=== PATIENT | male | born 1950 | race Caucasian/White ===

== ENCOUNTER → 2017-11-11 | Outpatient (CLI) | payer OTHER ==
[~2017-11-11] VITALS: Ht 185.4 cm; Wt 135.6 kg
[~2017-11-11] MED LIST: REGADENOSON 0.4 MG/5 ML PF SYG IVP SCH
== END | disposition home or self-care (01) ==
LOC: EDUNIT# 08:10 → SHCH 09:01
PROVIDERS: ATTEND Internal Medicine Cardiovascular Disease
DX: R07.9 Chest pain, unspecified (principal)
CPT/HCPCS: 78452; 93017; 96374; A9500 ×2; J2785

== ENCOUNTER 2018-04-24 05:56 | Day surgery (SDC) | payer OTHER ==
[2018-04-22 14:15] VITALS: BP 129/76
[2018-04-22 14:39] LABS: BASOPHILS % (AUTO) 0.3 % (0.0-5.0); EOSINOPHILS % (AUTO) 12.5 % (0.0-8.0); HEMATOCRIT 46.5 % (42-54); LYMPHOCYTES % (AUTO) 18.3 % (21.0-51.0); MEAN CORPUSCULAR HEMOGLOBIN 29.4 pg (27.0-33.0); MEAN CORPUSCULAR HGB CONC 32.2 g/dL (32.0-36.0); MEAN CORPUSCULAR VOLUME 91.5 fL (79-99); NEUTROPHILS % (AUTO) 61.9 % (40.0-77.0); PLATELET COUNT (AUTO) 177 K/uL (130-400); RED BLOOD CELL COUNT(AUTO) 5.08 MIL/uL (4.50-6.20); WHITE BLOOD COUNT (AUTO) 9.3 K/uL (4.8-10.8)
[2018-04-22 14:45] LABS: CREATININE 1.5 mg/dL (0.5-1.5); POTASSIUM 4.3 mmol/L (3.5-5.1)
[2018-04-22 14:48] LABS: INR 0.95 (0.85-1.15); PARTIAL THROMBOPLASTIN TIME 29.2 SEC (26.3-35.5)
[2018-04-22 14:49] LABS: APPEARANCE,URINE Clear (CLEAR); BILIRUBIN,URINE Negative (NEGATIVE); COLOR,URINE Dark Yellow (YELLOW); GLUCOSE, URINE (UA) Negative (NEGATIVE); KETONES,URINE Trace mg/dL (NEGATIVE); LEUKOCYTE ESTERASE ,URINE Negative (NEGATIVE); NITRATE,URINE Negative (NEGATIVE); OCCULT BLOOD,URINE Negative (NEGATIVE); PROTEIN,URINE Negative (NEGATIVE)
[~2018-04-24] VITALS: Ht 182.9 cm; Wt 141.8 kg
[2018-04-24] VITALS (18 sets, daily range): BP systolic 107–164; BP diastolic 47–89
[~2018-04-24 05:56] MED LIST changes: +ASPI-555 PO; +FOLI1TAB61 PO; +HYDR-4154 PO; +LOSA100T20 PO; +METO-408 PO; -REGADENOSON 0.4 MG/5 ML PF SYG IVP SCH; +SODIUM CHLORIDE 0.9% 500ML 500 ML IV SCH
[2018-04-24] MEDS ORDERED: SODIUM CHLORIDE 0.9% 1000ML 1,000 ML IV SCH (06:00)
[2018-04-24 06:39] LABS: CREATININE 1.4 mg/dL (0.5-1.5); POTASSIUM 4.7 mmol/L (3.5-5.1)
[2018-04-24] MEDS ORDERED: PRED20TA3 PO (08:11)
[2018-04-24] MEDS ORDERED: DIPH25 PO (08:11)
[2018-04-24] MEDS ORDERED: METHYLPREDNISOLONE SOD SUCC 125MG/2ML VIAL IVP SCH (08:30)
[2018-04-24] MEDS ORDERED: LIDOCAINE HCL-MPF 2% 5ML VIAL ONE (11:06)
[2018-04-24] MEDS ORDERED: IOHEXOL 350 MG/ML 100ML INFUS..BTL IV ONE (11:07)
[2018-04-24] MEDS ORDERED: IOHEXOL-350 50ML VIAL IV ONE ×2 (11:07→11:31)
[2018-04-24] MEDS ORDERED: METO-408 PO (11:55)
== END 2018-04-24 21:30 | disposition home or self-care (01) ==
LOC: DAH 05:56
PROVIDERS: ATTEND Internal Medicine Cardiovascular Disease
DX: I20.9 Angina pectoris, unspecified (principal); I11.9 Hypertensive heart disease without heart failure; F15.90 Other stimulant use, unspecified, uncomplicated; Z88.8 Allergy status to other drugs, medicaments and biological substances; E66.9 Obesity, unspecified; Z68.41 Body mass index [BMI] 40.0-44.9, adult; Z79.82 Long term (current) use of aspirin; Z79.899 Other long term (current) drug therapy; Z87.891 Personal history of nicotine dependence
CPT/HCPCS: 36415 ×2; 71045; 80048 ×2; 81003; 85025; 85610; 85730; 93005; 93458; 96365; 96366; 96374; A4606; C1894; J1644 ×2; J2930; J3490; J7030; Q9965; Q9967 ×2; 96360; 96361

== ENCOUNTER 2020-04-04 06:56 | Day surgery (SDC) | payer OTHER ==
[2020-03-30 12:19] LABS: BASOPHILS % (AUTO) 0.4 % (0.0-5.0); EOSINOPHILS % (AUTO) 5.8 % (0.0-8.0); HEMATOCRIT 52.4 % (42-54); LYMPHOCYTES % (AUTO) 15.9 % (21.0-51.0); MEAN CORPUSCULAR HEMOGLOBIN 29.1 pg (27.0-33.0); MEAN CORPUSCULAR HGB CONC 31.9 g/dL (32.0-36.0); MEAN CORPUSCULAR VOLUME 91.3 fL (79-99); NEUTROPHILS % (AUTO) 69.5 % (40.0-77.0); PLATELET COUNT (AUTO) 142 K/uL (130-400); RED BLOOD CELL COUNT(AUTO) 5.74 MIL/uL (4.50-6.20); RED CELL DISTRIBUTION WIDTH 15.2 % (11.0-15.5); WHITE BLOOD COUNT (AUTO) 8.3 K/uL (4.8-10.8)
[2020-03-30 12:28] LABS: POTASSIUM 4.2 mmol/L (3.5-5.1)
--- NOTE | 2020-04-01 14:44 | NUR ---
CLARIFICATION RECEIVED CALL BACK FROM DR REMY OFFICE THAT DR JOHNSON WILL PROCEED WITH SURGERY SCHEDULED WITHOUT COVID SWAB PER JUN HIS NURSE.
--- NOTE | 2020-04-01 16:58 | NUR ---
RE: ABNORMAL EKG INFORMED DR LANIER REGARDING ABNORMAL EKG. PER DR LANIER, PLEASE CALL HIM WHEN PATIENT ARRIVES TO OR HOLDING ON DAY OF SURGERY SO HE CAN GIVE ORDERS.
[2020-04-04] VITALS (12 sets, daily range): BP systolic 148–188; BP diastolic 68–138
[~2020-04-04] VITALS: Ht 180.3 cm; Wt 129.9 kg
[~2020-04-04 06:56] MED LIST changes: +ASPI-1443 PO; -ASPI-555 PO; +BENZ200C53 PO; +CEFAZOLIN SODIUM 1 GM VIAL IVP SCH; -FOLI1TAB61 PO; +FURO40TA5 PO; -HYDR-4154 PO; -LOSA100T20 PO; -METO-408 PO; +MONT10TA26 PO; +NINT150C PO; +SODIUM CHLORIDE 0.9% 1000ML 1,000 ML IV SCH; -SODIUM CHLORIDE 0.9% 500ML 500 ML IV SCH
[2020-04-04] MEDS ORDERED: LACTATED RINGERS 1000ML 1,000 ML IV ONE (07:45)
--- NOTE | 2020-04-04 07:45 | NUR ---
PREOP PT ARRIVED VIA W/C WITH O2 AT 2L AND SOB. PT WAS SEEN BY DR LANIER FOR EVAL. DR LANIER ALSO INFORMED OF ELEVATED B/P. NO NEW ORDERS AT THIS TIME. PT GIVEN CALL LIGHT
[2020-04-04] MEDS ORDERED: CEFAZOLIN SODIUM 1 GM VIAL ONE (08:23)
[2020-04-04] MEDS ORDERED: LIDOCAINE HCL 1% 20 ML VIAL ONE (08:30)
[2020-04-04] MEDS ORDERED: BUPIVACAINE/PF 0.5% 30ML VIAL ONE (08:30)
[2020-04-04] MEDS ORDERED: KETAMINE 50MG/ML SYRINGE 50 MG/ML DISP.SYRIN IV ONE (09:59)
--- NOTE | 2020-04-04 10:45 | NUR ---
Pt received Pt was received via stretcher from PACU and OR staff. Pt awake and alert. Talkative. Denies any pain. Pt with high BP. As per PACU nurse this is a norm for pt and that MD is aware. Dressing to left chest area with gauze and opsite. Dry and intact. Pt denies any pain or discomfort. Pt states BP is always as now.
--- NOTE | 2020-04-04 11:45 | NUR ---
D/C Pt was taken out of facility via w/c with personal o2 on at 3L/min via NC
--- NOTE | 2020-04-04 11:45 | NUR ---
D/C Pt was given discharge instructions and was given instructions over the phone. Prescription for Motrin 800mg given. Reviewed with pt and . All discharge instructions were discussed with also a follow up appointment. Both verbalized understanding. Pt was taken out of facility via w/c with awaiting in no distress. Pt very appreciative.
== END 2020-04-04 11:45 ==
LOC: DAH 06:56
PROVIDERS: ATTEND Surgery
DX: N63.23 Unspecified lump in the left breast, lower outer quadrant (principal); I10 Essential (primary) hypertension; Z98.890 Other specified postprocedural states; Z79.899 Other long term (current) drug therapy
CPT/HCPCS: 19120; 36415; 80048; 85025; 93005; A4215; A4221; A4222; A4223; A4606; A4663; A5120; A6260; J0690; J3490 ×2; J7030; J7120